=== PATIENT | female | born 1990 | race Caucasian/White ===

== ENCOUNTER 2017-09-17 11:50 | Inpatient (IN) | payer OTHER ==
[2017-09-17] VITALS (19 sets, daily range): BP systolic 120–178; BP diastolic 76–98
[~2017-09-17 11:50] MED LIST: ERRIN0.35 MG; FLEXERIL10 MG PO; Motrin PO; NAPROSYN500 MG PO
[2017-09-17 13:04] LABS: BASOPHIL (%) 0.2 % (0-1); EOSINOPHIL (%) 0.2 % (0-5); HEMATOCRIT 33.4 % (36.0-46.0); HEMOGLOBIN 10.8 G/DL (11.9-15.5); IMMATURE GRANULOCYTE (%) 0.4 % (0.0-0.7); LYMPHOCYTE (%) 7.8 % (15-42); LYMPHOCYTE COUNT 1.3 K/uL (1.0-2.8); MCH 26.7 PG (29.0-34.0); MCHC 32.3 G/DL (30.0-36.0); MCV 82.7 FL (83-99); MONOCYTE (%) 5.3 % (3-12); MONOCYTE COUNT 0.9 K/uL (0-0.8); NEUTROPHIL (%) 86.1 % (45-76); NEUTROPHIL COUNT 14.5 K/uL (1.8-6.4); PLATELET COUNT 234 K/uL (156-360); RBC DIS.WIDTH-SD 39.4 % (39-53); RED BLOOD COUNT 4.04 M/uL (3.80-5.20); WHITE BLOOD COUNT 16.9 K/uL (4.1-10.2)
[2017-09-17 13:25] LABS: ALBUMIN 3.4 G/DL (3.2-4.8); CHLORIDE 107 MEQ/L (99-109); POTASSIUM 4.1 MEQ/L (3.7-5.4); SODIUM 137 MEQ/L (136-147); TOTAL BILIRUBIN 0.4 MG/DL (0.0-1.0)
[2017-09-17 13:33] LABS: ALKALINE PHOSPHATASE 134 IU/L (3-129); ALT (GPT) 6 IU/L (3-49); AST (GOT) 10 IU/L (2-34); CREATININE 0.5 MG/DL (0.6-1.3); GFR ESTIMATE (CALCULATED) > 59 mL/min/; GLUCOSE 78 mg/dL (70-99); LACTATE DEHYDROGENASE 158 IU/L (20-246); SERUM ETHYL ALCOHOL < 10 mg/dL; TOTAL PROTEIN 6.6 G/DL (6.4-8.3); UREA NITROGEN (BUN) 14 mg/dL (9-23); URIC ACID 3.9 mg/dL (3.1-9.2)
[2017-09-17 15:58] LABS: AMPHETAMINE NEGATIVE (500 ng/mL); BARBITURATES NEGATIVE (200 ng/mL); BENZODIAZEPINES NEGATIVE (150 ng/mL); BUPRENORPHINE NEGATIVE (10 ng/mL); COCAINE NEGATIVE (150 ng/mL); METHADONE NEGATIVE (200 ng/mL); METHAMPHETAMINE NEGATIVE (500 ng/mL); OPIATES (MORPHINE) NEGATIVE (100 ng/mL); OXYCODONE NEGATIVE (100 ng/mL); PHENCYCLIDINE NEGATIVE (25 ng/mL); PROPOXYPHENE NEGATIVE (300 ng/mL); THC CANNABINOIDS NEGATIVE (50 ng/mL); TRICYCLIC ANTIDEPRESSANTS NEGATIVE (300 ng/mL)
[2017-09-17 16:16] LABS: APPEARANCE BLOODY ((CLEAR)); COLOR BLOODY ((YELLOW)); LEUKOCYTES SMALL; NITRITE NEGATIVE; PH, URINE 6.5 (5-8); PROTEIN (STRIP) 100; SPECIFIC GRAVITY 1.013 (1.000-1.030)
[2017-09-17 16:17] LABS: BILIRUBIN NEGATIVE; BLOOD LARGE; GLUCOSE (STRIP) NEGATIVE; KETONES NEGATIVE; UROBILINOGEN 0.2 MG/DL (0.2-1.0)
[2017-09-17 17:07] LABS: RED BLOOD CELLS TNTC /HPF (0-5); UCUL ADDED? YES
[2017-09-18] VITALS (13 sets, daily range): BP systolic 100–161; BP diastolic 57–96
[2017-09-18 07:39] LABS: BASOPHIL (%) 0.6 % (0-1); BASOPHIL COUNT 0.1 K/uL (0-0.1); EOSINOPHIL (%) 1.6 % (0-5); EOSINOPHIL COUNT 0.2 K/uL (0-0.3); HEMATOCRIT 29.2 % (36.0-46.0); HEMOGLOBIN 9.3 G/DL (11.9-15.5); IMMATURE GRANULOCYTE (%) 0.3 % (0.0-0.7); LYMPHOCYTE (%) 22.3 % (15-42); LYMPHOCYTE COUNT 2.1 K/uL (1.0-2.8); MCH 26.3 PG (29.0-34.0); MCHC 31.8 G/DL (30.0-36.0); MCV 82.7 FL (83-99); MONOCYTE (%) 7.2 % (3-12); MONOCYTE COUNT 0.7 K/uL (0-0.8); NEUTROPHIL COUNT 6.4 K/uL (1.8-6.4); PLATELET COUNT 214 K/uL (156-360); RBC DIS.WIDTH-CV 13.3 % (11.8-14.6); RED BLOOD COUNT 3.53 M/uL (3.80-5.20); WHITE BLOOD COUNT 9.4 K/uL (4.1-10.2)
[2017-09-18 07:58] LABS: Estimated Average Glucose 105 mg/dL (70-123); HEMOGLOBIN A1c (GLYCOHEMOGLOB) 5.3 % HGB (Below 5.7)
[2017-09-18 10:29] LABS: HEPATITIS B SURFACE ANTIGEN Nonreactive
[2017-09-18 10:30] LABS: HIV-1/2 AB/AG COMBO Nonreactive
[2017-09-18 12:07] LABS: TREPONEMA ANTIBODY NEGATIVE (NEGATIVE)
[2017-09-19 03:38] VITALS: BP 115/76
[2017-09-19 07:24] VITALS: BP 134/80
[2017-09-19] MEDS ORDERED: CHROMAGEN,1 CAPSULE PO (10:46)
[2017-09-19] MEDS ORDERED: IBUPROFEN800 MG PO (10:47)
[2017-09-19] MEDS ORDERED: DOCUSATE SODIU100 MG PO (10:48)
[2017-09-19 13:04] VITALS: BP 141/90
[2017-09-19 13:49] VITALS: BP 119/71
[2017-09-19 15:10] VITALS: BP 136/81
[2017-09-19] MEDS ORDERED: LEXAPRO20 MG PO (19:45)
== END 2017-09-19 20:45 | disposition home or self-care (01) | DRG 775 ==
LOC: LDRP-OP 11:50 → 2WEST 11:51
PROVIDERS: Advanced Practice Midwife
PROC: 0UQMXZZ Repair Vulva, External Approach (ICD-10-PCS; principal; 2017-09-17)
PROC: 0KQM0ZZ Repair Perineum Muscle, Open Approach (ICD-10-PCS; principal; 2017-09-17)
DX: O71.4 Obstetric high vaginal laceration alone (principal); O99.340 Other mental disorders complicating pregnancy, unspecified trimester; O99.314 Alcohol use complicating childbirth; F41.9 Anxiety disorder, unspecified; O09.33 Supervision of pregnancy with insufficient antenatal care, third trimester; O69.81X0 Labor and delivery complicated by cord around neck, without compression, not applicable or unspecified; Z3A.00 Weeks of gestation of pregnancy not specified; Z37.0 Single live birth
CPT/HCPCS: 80053; 81003; 83030; 83036; 83615; 84550; 85025; 86703; 86762; 86780; 86850; 86900; 86901; 87070; 87075; 87077; 87086; 87147; 87186; 87205; 87340; 87491; 87591; 88307; G0480; J2790; J3475; J7120